=== PATIENT | female | born 1950 | race African-American/Black ===

== ENCOUNTER → 2018-06-10 | Outpatient (CLI) | payer OTHER ==
[~2018-06-10] MED LIST: CELEBREX 200 M200 M1 PO; COLACE100 MG PO; COREG6.25 MG PO; COSOPT EYE DROPS5 ML OP; COZAAR 25 MG TA25 M1 PO; FLEXERIL PO; FLOMAX0.4 MG PO; IBUPROFEN 800800 M1 PO; IRON325 PO; METFORMIN HCL500 MG PO; NEURONTIN 300300 M1 PO; NEURONTIN600 MG PO; PERCOCET 10-321 EACH PO; PRED FORTE 1% EY5 M1 OP; VITAMINC500 PO
[2018-06-10 14:45] LABS: BF CRYSTALS No Crystals seen; SOURCE SYNOVIAL
== END | disposition home or self-care (01) ==
LOC: RAD 12:40
PROVIDERS: Orthopaedic Surgery
DX: M25.551 Pain in right hip (principal); E11.9 Type 2 diabetes mellitus without complications; Z88.8 Allergy status to other drugs, medicaments and biological substances; Z79.899 Other long term (current) drug therapy; Z98.890 Other specified postprocedural states; Z96.641 Presence of right artificial hip joint

== ENCOUNTER → 2018-08-13 | Outpatient (CLI) | payer OTHER | LOC: NUC 11:05 | DX: M25.752 Osteophyte, left hip (principal); Z96.641 Presence of right artificial hip joint ==